=== PATIENT | female | born 1965 | race Caucasian/White ===

== ENCOUNTER → 2016-07-09 15:35 | Outpatient (CLI) | payer BC | END | disposition home or self-care (01) | LOC: D.CT 15:35 | DX: R10.11 Right upper quadrant pain (principal) ==

== ENCOUNTER 2016-07-18 21:46 | Emergency (ER) | payer BC ==
[2016-07-18 22:43] LABS: BASOPHILS 0.3 % (0.0-2.0); EOSINOPHILS 1.8 % (0-7); HEMATOCRIT 38.4 % (36.0-48.0); IMMATURE GRANULOCYTES 0.1 % (0-5); LYMPHOCYTES 41.2 % (15-50); MCH 31.6 pg (26.0-34.0); MCHC 33.9 g/dL (31.0-37.0); MCV 93.4 fL (80.0-100.0); MEAN PLATELET VOLUME 9.6 fL (7.4-10.4); MONOCYTES 6.6 % (2-11); PLATELET COUNT 177 10x3/uL (130-400); RBC 4.11 10x6/uL (4.00-5.40); RDW 12.9 % (11.5-14.5); WBC 6.8 10x3/uL (4.8-10.8)
[2016-07-18 22:55] LABS: ALBUMIN 3.8 g/dL (3.4-5.0); ALKALINE PHOSPHATASE 51 U/L (46-116); ALT (SGPT) 26 U/L (10-68); BILIRUBIN - TOTAL 0.18 mg/dL (0.2-1.3); CALC OSMOLALITY 279 mosm/kg (275-300); CALCIUM 8.7 mg/dL (8.5-10.1); CARBON DIOXIDE 29.6 mmol/L (21.0-32.0); CHLORIDE - SERUM 103 mmol/L (98-107); CREATININE - SERUM 0.9 mg/dL (0.6-1.3); GLUCOSE 101 mg/dL (74-106); POTASSIUM - SERUM 4.1 mmol/L (3.5-5.1); SODIUM 139 mmol/L (136-145); UREA NITROGEN 17 mg/dL (7-18); eGFR NON AFRICAN AMERICAN 70 mL/min (90-120)
[2016-07-18 23:06] LABS: CHOL - HDL RATIO 2.4 ratio (2.3-4.1); CHOLESTEROL, TOTAL 169 mg/dL (0-200); CKMB 1.3 U/L (0.0-3.6); CREATINE KINASE 83 UL (21-215); HDL CHOLESTEROL 71 mg/dL (32-96); LDL CHOLESTEROL 71 mg/dL (0-100); TRIGLYCERIDE 138 mg/dL (30-200)
[2016-07-18 23:09] LABS: TROPONIN-I < 0.017 ng/mL (0.000-0.060)
== END 2016-07-19 00:10 | disposition home or self-care (01) ==
LOC: D.ER 21:46
PROVIDERS: Family Medicine
DX: K21.9 Gastro-esophageal reflux disease without esophagitis (principal); I10 Essential (primary) hypertension; E03.9 Hypothyroidism, unspecified